=== PATIENT | male | born 1965 | race Caucasian/White ===

== ENCOUNTER 2023-12-24 11:46 | Day surgery (SDC) | payer OTHER ==
[~2023-12-24] VITALS: Ht 177.8 cm; Wt 78.2 kg
[2023-12-24] VITALS (10 sets, daily range): BP systolic 96–129; BP diastolic 61–78; PULSE 44–56; TEMP 97.5–97.7
[~2023-12-24 11:46] MED LIST: LR 1,000 ML IV SCH
[2023-12-24] MEDS ORDERED: FLOMAX 0.40.4 MG/CAP PO (12:35)
[2023-12-24] MEDS ORDERED: Midazolam 2 MG/2 ML VIAL ONE (14:49)
[2023-12-24] MEDS ORDERED: Lidocaine PF 2% (20 MG/ML) 5 ML VIAL ONE (14:49)
[2023-12-24] MEDS ORDERED: Magnes Hydrox (MOM) 80 MG/ML 30 ML CUP PO PRN (15:30)
[2023-12-24] MEDS ORDERED: droPERidol 2.5 MG/ML 2 ML VIAL IV PRN (15:30)
[2023-12-24] MEDS ORDERED: NS Irrig Soln 3000 ML SOLN IR PRN (15:30)
[2023-12-24] MEDS ORDERED: Ondansetron 4 MG/2 ML VIAL IV PRN ×2 (15:30)
[2023-12-24] MEDS ORDERED: Hyoscyamine 0.125 MG Sublingual TAB SL PRN (15:30)
[2023-12-24] MEDS ORDERED: Acetaminophen 325 MG TAB PO PRN (15:30)
[2023-12-24] MEDS ORDERED: Morphine 4 MG/ML VIAL IV PRN ×2 (15:30)
[2023-12-24] MEDS ORDERED: fentaNYL 50 MCG/ML 2 ML VIAL IV PRN (15:30)
[2023-12-24] MEDS ORDERED: HYDROmorphone 2 MG/1 ML VIAL IV PRN (15:30)
[2023-12-24] MEDS ORDERED: 1/2 NS & 20 mEq KCl 1,000 ML IV SCH (15:30)
[2023-12-24] MEDS ORDERED: Meperidine 50 MG/ML 1 ML VIAL IV PRN (15:30)
[2023-12-24] MEDS ORDERED: Lidocaine 2% (20 MG/ML) 20 ML UROJET UR ONE (15:34)
--- NOTE | 2023-12-24 17:00 | NUR ---
pt admitted to room from pacu, at bedside. pt a&ox3. vss. pt denies pain. cbi running, light pink urine in douglas bag. scds to ble. pt tolerating clear liquid diet. fluids infusing into left forearm. med rec and admission assessment complete. pt denies needs at this time. call light in reach. oriented pt to room.
[2023-12-24] MEDS ORDERED: Docusate Sodium 100 MG CAP PO SCH (21:00)
[2023-12-24] MEDS ORDERED: Nystatin 100,000 Units/GM Ointment 15 GM TUBE TP SCH (21:00)
[2023-12-24] MEDS ORDERED: Melatonin 3 MG TAB PO PRN (21:00)
[2023-12-25] VITALS (8 sets, daily range): BP systolic 96–112; BP diastolic 57–64; PULSE 51–122; TEMP 97.9–98.4
--- NOTE | 2023-12-25 06:09 | NUR ---
DARBY DRAINING PINKISH URINE THIS AM, MANUAL IRRIGATION X2 THIS SHIFT, LARGE CLOT REMOVED 1ST OF SHIFT, NO CLOTS AFTERWARDS. PT TAKING GOOD PO INTAKE, IVF TO INT. MORPHINE AND TYLENOL GIVEN X1, LEVSIN PRN
--- NOTE | 2023-12-25 08:29 | NUR ---
Patient resting in bed, his daughter visited. Breakfast ordered, he denies nausea this am. Polanco discomfort, medications PRN tylenol & levsin given. Polanco to DD with reddish output, CBI to slow drip. Int. Scds off. Will monitor.
--- NOTE | 2023-12-25 12:42 | NUR ---
Data: Main Line Assembler visit offered during Main Line Assembler rounds. Patient declined. Assessment: Main Line Assembler visit not completed; no assessment completed. Plan of Care: Chaplains will be available as requested by Patient while he is admitted to this hospital.
--- NOTE | 2023-12-25 13:02 | NUR ---
SW met with patient to complete intake. Patient's was present ( Nat Cook [phone]). Patient shared that he lives with his spouse in [facility] and that his PCP is Dr Ellsworth with [facility] and pharmacy of choice is [facility]. Patient reports that he is independent with ADLs and no current DMEs. Patient is anticipating to discharge back home to his residence with spouse. Discharge plan: TBD
--- NOTE | 2023-12-25 14:30 | NUR ---
Patient has done well post prime and pull. Completed 6 cup routine. Voided without difficulty, but some urgency and frequency and burning. Urine remains blood tinged, clots initally but has resolved. rounded and discharge orders obtained. Patient ready to get home. INT DC. We reviewed all discharge education including activity restrictions and diet. Patient aware of follow up appt. Denies questions or concerns. Patient ambulated out with all belongings, his to take him home
== END 2023-12-25 14:25 | disposition home or self-care (01) ==
LOC: SDCO 11:46 → SURG 17:03 → SDCO 12-25 14:25
DX: N40.1 Benign prostatic hyperplasia with lower urinary tract symptoms (principal); R39.12 Poor urinary stream; R39.14 Feeling of incomplete bladder emptying; R35.1 Nocturia; R30.0 Dysuria; Z79.899 Other long term (current) drug therapy
CPT/HCPCS: OP; J0690; J2250; J2270; J2704; J3480; J7120